=== PATIENT | female | born 1985 ===

== ENCOUNTER 2017-03-02 20:09 | Emergency (ER) | payer SELFPAY ==
[2017-03-02] MEDS ORDERED: Sodium Chloride 0.9% 1,000 ML IV SCH (20:45)
[2017-03-02] MEDS ORDERED: Sodium Chloride 0.9% 1,000 ML IV ONE (20:48)
[2017-03-02 20:59] LABS: BASO % 0.5 % (0.0-2.0); EOS # 0.1 K/uL (0.0-0.7); EOS % 1.1 % (0.0-4.0); HEMOGLOBIN 14.2 g/dL (11.0-16.0); LYMPH # 2.2 K/uL (1.0-4.3); LYMPH % 24.1 % (20.0-40.0); MEAN CELL VOLUME 86.3 fL (81.0-99.0); MEAN CORPUSCULAR HEMOGLOBIN 29.5 pg (27.0-31.0); MEAN CORPUSCULAR HGB CONC 34.2 g/dL (33.0-37.0); MEAN PLATELET VOLUME 8.9 fL (7.2-11.7); MONO # 0.5 K/uL (0.0-0.8); MONO % 5.3 % (0.0-10.0); NEUT # 6.4 K/uL (1.8-7.0); RBC 4.8 Mil/uL (3.80-5.20); RED CELL DISTRIBUTION WIDTH 14.1 % (11.5-14.5); WHITE BLOOD COUNT 9.2 K/uL (4.8-10.8)
[2017-03-02 21:12] LABS: ALB/GLOB RATIO 1.1 (1.0-2.1); ALT/SGPT 23 U/L (9-52); AST/SGOT 16 U/L (14-36); BLOOD UREA NITROGEN 14 mg/dL (7-17); CALCIUM 8.4 mg/dl (8.6-10.4); GFR AFRICAN-AMERICAN > 60; GFR NON-AFRICAN AMERICAN > 60; HDL CHOLESTEROL 50 mg/dL (30-70)
[2017-03-02 21:18] LABS: BARBITURATES, UR NEGATIVE (NEGATIVE); BENZODIAZEPINES, UR NEGATIVE (NEGATIVE); OPIATES, UR NEGATIVE (NEGATIVE); PHENCYCLIDINE, UR NEGATIVE (NEGATIVE)
[2017-03-02 21:24] LABS: LDL CHOLESTEROL 92 mg/dL (0-129)
[2017-03-02 21:36] LABS: SQUAMOUS EPITHIAL 4 /hpf (0-5); URINE BACTERIA RARE (<OCC); URINE BILIRUBIN NEGATIVE (NEGATIVE); URINE BLOOD NEGATIVE (NEGATIVE); URINE CLARITY Clear (Clear); URINE COLOR Yellow (YELLOW); URINE GLUCOSE (UA) NORMAL (Normal); URINE LEUKOCYTE ESTERASE NEG Leu/uL (Negative); URINE NITRATE NEGATIVE (NEGATIVE); URINE PROTEIN NEGATIVE (NEGATIVE); URINE UROBILINOGEN NORMAL mg/dL (0.2-1.0)
[2017-03-02 21:39] LABS: HCG,QUALITATIVE URINE NEGATIVE (NEGATIVE)
--- NOTE | 2017-03-02 21:45 | C.PDOC ---
History Of Present Illness 31 year old female is brought to the ED by her friends for evaluation after having a near-syncopal episode at home earlier today. Patient states she was in her bathroom and was about to stand up from the toilet when she began feeling dizziness, weakness, shakiness in arms, difficulty finding words. Patient then tripped and fell into her bathtub and sustained a mild contusion to her right upper arm. She denies loss of consciousness or head trauma. Patient states her symptoms then resolved spontaneously. Patient is concerned about cerebrovascular disease because of a familial history (mother). Patient underwent MRI two years ago by an outpatient neurologist and the result was unremarkable. Patient admits to drinking one alcoholic cocktail today. Has been emotionally stressed due to a break-up with her boyfriend. She denies headache , vision change, neck pain, nausea, vomiting. Time Seen by Provider: 03/02/17 20:41 Chief Complaint (Nursing): Syncope History Per: Patient History/Exam Limitations: no limitations Current Symptoms Are (Timing): Gone Associated Symptoms Preceding Syncopal Episode: No Predromal Symptoms (Sudden Onset) Additional History Per: Patient Past Medical History Reviewed: Historical Data, Nursing Documentation, Vital Signs Vital Signs: Last Vital Signs Temp 98.2 F 03/02/17 21:57 Pulse 88 03/02/17 21:57 Resp 20 03/02/17 21:57 BP 132/72 03/02/17 21:57 Pulse Ox 98 03/03/17 00:06 - Medical History PMH: No Chronic Diseases Surgical History: No Surg Hx Family History: States: Unknown Family Hx - Social History Hx Alcohol Use: Yes Hx Substance Use: No - Immunization History Hx Tetanus Toxoid Vaccination: No Hx Influenza Vaccination: No Hx Pneumococcal Vaccination: No Review Of Systems Skin: Positive for: Other (contusion to right upper arm ) Neurological: Positive for: Weakness, Dizziness. Negative for: Other (LOC ) Physical Exam - Physical Exam Appears: Non-toxic, No Acute Distress, Other (calm, cooperative ) Skin: Normal Color, Warm, Dry, Other (3cm superficial scratch to medial upper right triceps region ) Head: Atraumatic, Normacephalic Eye(s): bilateral: Normal Inspection, PERRL, EOMI Oral Mucosa: Moist Neck: Supple Chest: Symmetrical, No Deformity, No Tenderness Cardiovascular: Rhythm Regular, No Murmur Respiratory: Normal Breath Sounds, No Rales, No Rhonchi, No Wheezing Extremity: Normal ROM, Capillary Refill (less than 2 seconds ) Neurological/Psych: Oriented x3, Normal Speech, Normal Cognition, Normal Sensation Gait: Steady ED Course And Treatment - Laboratory Results Result Diagrams: 03/02/17 20:56 03/02/17 20:56 Lab Interpretation: Normal (ua/tox/etoh neg.) Urine POC: Negative ECG: Interpreted By Me ECG Rhythm: Sinus Rhythm ECG Interpretation: Normal Rate From EC O2 Sat by Pulse Oximetry: 98 (on RA) Pulse Ox Interpretation: Normal - CT Scan/US head CT Other Rad Studies (CT/US): Radiology Report Reviewed (neg) Progress Note: tylenol PO, IVF Reevaluation Time: 21:43 Reassessment Condition: Improved Medical Decision Making Medical Decision Making: vasovagal near-syncope with shaking vs panic attack- no LOC, prob related to standing in bathroom and recent emotional stress- boyfriend breakup. Neurologically intact throughout. Disposition Doctor Will See Patient In The: Office Counseled Patient/Family Regarding: Studies Performed, Diagnosis - Disposition Referrals: [facility] [Outside] [facility] [Outside] Kvng Ennis MD [Staff Provider] - Disposition: HOME/ ROUTINE Disposition Time: 21:45 Condition: GOOD Additional Instructions: probably vaso-vagal near-syncope- this is a VERY common diagnosis and NOT dangerous. NO Seizure activity No new meds Follow-up in our outpatient Family Practice Clinic and/or Neurology Licensed Massage Practitioner- Dr. Ennis for further eval as needed. Instructions: Syncope (ED), Lightheadedness (ED) Forms: [facility] (Guyanese) - Clinical Impression Clinical Impression: Near syncope - Scribe Statement The provider has reviewed the documentation as recorded by the Scribe (Miriam Umaña) Provider Attestation: All medical record entries made by the Scribe were at my direction and personally dictated by me. I have reviewed the chart and agree that the record accurately reflects my personal performance of the history, physical exam, medical decision making, and the department course for this patient. I have also personally directed, reviewed, and agree with the discharge instructions and disposition.
[2017-03-02 21:58] VITALS: BP 132/72; PULSE 88; RESP 20; TEMP 98.2
[2017-03-02 23:57] VITALS: O2SAT 98
--- NOTE | 2017-03-03 10:15 | CT ---
PROCEDURE: CT HEAD WITHOUT CONTRAST. HISTORY: syncope COMPARISON: None available. TECHNIQUE: Axial computed tomography images were obtained through the head/brain without intravenous contrast. Radiation dose: Total exam DLP = 894.45 mGy-cm. This CT exam was performed using one or more of the following dose reduction techniques: Automated exposure control, adjustment of the mA and/or kV according to patient size, and/or use of iterative reconstruction technique. FINDINGS: HEMORRHAGE: No intracranial hemorrhage. BRAIN: No mass effect or edema. The ramos-white matter differentiation appears intact. VENTRICLES: No hydrocephalus. CALVARIUM: Unremarkable. PARANASAL SINUSES: Unremarkable as visualized. No significant inflammatory changes. MASTOID AIR CELLS: Unremarkable as visualized. No inflammatory changes. OTHER FINDINGS: None. IMPRESSION: No acute intracranial pathology identified. Preliminary impression was provided by virtual radiologic.
--- NOTE | 2017-03-03 13:33 | CARD ---
APPROVED REPORT EKG Measurement Heart [id number] <Conclusion> Normal sinus rhythm Possible Left atrial enlargement Borderline ECG
== END 2017-03-02 21:58 | disposition home or self-care (01) ==
LOC: C.ER 20:09
DX: R55 Syncope and collapse (principal)
CPT/HCPCS: 70450; 80053; 80061; 81001; 83036; 84703; 85025; 93005; 96360; 99285; G0480; J7040